=== PATIENT | female | born 1935 | race Caucasian/White ===

== ENCOUNTER 2021-11-25 20:35 | Observation (INO) ==
[2021-11-25] MEDS ORDERED: CEFEPIME 2,000 MG/20 ML VIAL IV STA (21:43)
[2021-11-25] MEDS ORDERED: SODIUM CHLORIDE 0.9% 1000ML 1,000 ML IV SCH (21:45)
[2021-11-25] MEDS ORDERED: ACETAMINOPHEN 1000 MG/100 ML IV IV STA (21:54)
[2021-11-25 21:56] LABS: Basophils # (auto) 0.03 K/uL (0-0.2); Basophils % (auto) 0.5 %; Hematocrit (blood only) 44.9 % (37-47); Immature Granulocytes # (auto) 0.01 K/uL (0.00-0.02); Immature Granulocytes % (auto) 0.2 %; Lymphocytes # (auto) 0.54 K/uL (1.2-3.4); Lymphocytes % (auto) 8.6 %; Mean Corpuscular Hemoglobin 30.1 pg (25-34); Mean Corpuscular Hgb Conc 33.4 g/dL (32-36); Mean Platelet Volume 10.9 fL (7.4-10.4); Monocytes # (auto) 0.19 K/uL (0.11-0.59); Neutrophils # (auto) 5.53 K/uL (1.4-6.5); Neutrophils % (auto) 87.7 %; Platelet Count 145 K/uL (130-400); RDW Coefficient of Variation 14.6 % (11.5-14.5); RDW Standard Deviation 48.7 fL (36.4-46.3); Red Blood Count 4.99 M/uL (4.2-5.4)
--- NOTE | 2021-11-25 22:00 | Emergency Department Note ---
Impression & Plan Acute confusion, Pneumonia, Weakness ED Provider Note NAME: RYLIE KELLY AGE: 86 SEX: F : 1935 ARRIVES VIA: Ambulance INFORMANT: [Patient][family] ED PROVIDER(S): [Enzo aRusch MD] CHIEF COMPLAINT: Weakness HISTORY OF PRESENT ILLNESS: The patient is an 86-year-old female who presents to the ER with 2 days of headache, some intermittent vomiting, fatigue, chills. Today, she was in bed all day and seemed quite a bit weaker than baseline. At times, there was confusion. The patient is a resident at [facility]. She was recently treated for pneumonia, she finished her antibiotics about 3 days ago. Of note, the nursing noticed a temperature elevation prior to arrival. The patient currently complains of some chills. She has no shortness of breath or abdominal pain. No headache. No chest pain. REVIEW OF SYSTEMS: See HPI for pertinent positives and negatives. A total of ten systems were reviewed and were otherwise negative. PMHx/PSHx: See Below SOCIAL HISTORY: See Below. PHYSICAL EXAM: GENERAL: Patient is in no acute distress. HEENT: No acute trauma, normocephalic atraumatic, mucous membranes dry, no nasal congestion, no scleral icterus. NECK: No stridor, no adenopathy, no meningismus, trachea is midline. LUNGS: Clear to auscultation bilaterally, no wheeze, no rhonchi, breath sounds equal. HEART: Without murmurs gallops or rubs, regular rate and rhythm. ABDOMEN: Soft, nontender, bowel sounds positive, no hernias, no peritonitis. EXTREMITIES: No cyanosis or edema, full range of motion of all the joints without pain or difficulty, no signs for acute trauma. NEUROLOGIC: Awake alert, follows commands, no acute motor or sensory deficits, no focal weakness. SKIN: No rash, no jaundice, no diaphoresis. DIFFERENTIAL DIAGNOSIS: Sepsis, UTI, pneumonia, COVID-19, influenza, metabolic abnormality, electrolyte abnormalities, cardiac sources, cellulitis, bacteremia, intracerebral event, toxicologic etiology, neurologic event, as well as other pathologies. EMERGENCY DEPARTMENT COURSE/PROCEDURES: ECG: Indication was weakness. The ECG shows a sinus rhythm with a PAC. The rate is 92. There is some ST depression in the lateral leads. There is a potential old inferior infarct. No ST elevation. The QTc is 420. Continuous Cardiac Monitoring: An order was placed for continuous cardiac monitoring. The monitor shows a rate of 92 with normal sinus rhythm. MEDICAL DECISION MAKING: There is no leukocytosis or worrisome anemia. There is a normal platelet count. INR is a bit elevated at 1.2, likely from her Xarelto use. There is no significant electrolyte abnormality or kidney failure. Lactic acid level is not elevated making severe sepsis less likely. There is no worrisome liver enzyme elevation. ECG shows a sinus rhythm, no obvious ischemia. Cardiac enzyme testing x1 is not consistent with acute cardiac injury. Procalcitonin level is not elevated. Urinalysis shows some contamination, no obvious infection. Flu and Covid testing returned negative. Chest x-ray showed a potential left base pneumonia versus atelectasis. Brain CT showed no acute bleed or mass-effect. The patient presents with some confusion, a fever documented earlier. She was recently treated for pneumonia as an outpatient. The patient was given IV saline, 1 L. She was given IV cefepime as empiric antibiotic coverage. She received IV Tylenol. The patient has been resting her entire stay. Her O2 saturation is a bit low but still acceptable, I do not think she requires oxygen supplementation. I do think the patient deserves a hospital stay. She is weak, she was confused, she was febrile. She may have a residual pneumonia based on her chest x-ray findings and recent history. I did speak with the patient and her daughter, I spoke with the director case. The on-call hospitalist was consulted. Past Med/Surg History Medical History Atrial fibrillation Dementia Parkinsons disease Sjogren syndrome, unspecified Surgical History (Updated 11/26/21 @ 03:46 by Michaela Saldana DO) History of hysterectomy History of surgical procedure on eye proper using laser Family History (Updated 11/26/21 @ 03:46 by Michaela Saldana DO) Other Family history non-contributory Social History Smoking Status: Never smoker Hx Alcohol Use: No Hx Substance Use: No Preferred Language: Bulgarian Communication Ability: Effective Credit Associate Required: No Beliefs That Will Affect Care: None marital status: Single Current Living Situation: Alone and Personal Care Facility Current Living Situation Comment: Independent living How many Children do You have: 1 Other Information That Helps Us Care for You: No Feels Safe at Home: Yes Safety Concerns: Feels Safe At This Time Assistive Devices: Cane Allergies Allergies Allergy/AdvReac Type Severity Reaction Status Date / Time No Known Allergies Allergy Verified 11/25/21 21:17 Home Meds Home Medications Medication Instructions Recorded Confirmed carbidopa 25 mg-levodopa 100 mg 1 tab PO DAILY 06/20/21 11/25/21 tablet rivaroxaban 20 mg tablet (Xarelto) 20 mg PO DAILY 06/20/21 11/25/21 rivastigmine 9.5 mg TRANSDERMAL DAILY 06/20/21 11/25/21 ondansetron 4 mg disintegrating 4 mg PO TID PRN 11/25/21 11/25/21 tablet pantoprazole 40 mg tablet,delayed 40 mg PO DAILY 11/25/21 11/25/21 release polyethylene glycol 3350 17 17 g PO DAILY PRN 11/25/21 11/25/21 gram/dose oral powder (Miralax) Results & Data (ED) Vital Signs Vital Signs - 24 hr 11/25/21 20:47 11/25/21 20:48 11/25/21 22:20 Temperature 37.6 C H Temperature Source Oral Pulse Rate 92 H Pulse Rate [Right Finger] Pulse Rhythm Regular Pulse Rhythm [Right Finger] Pulse Strength Normal Pulse Strength [Right Finger] Respiratory Rate 14 Respiratory Effort / Characteristics Non-Labored Respiratory Depth Normal Respiratory Pattern Regular Blood Pressure 139/72 Blood Pressure [Left Arm] Blood Pressure Mean 94 Blood Pressure Mean [Left Arm] Blood Pressure Position Lying Blood Pressure Position [Left Arm] Pulse Oximetry 93 Oxygen Delivery Method Room Air Room Air Room Air Sepsis Recent Fever Within 48 Hours Yes Sepsis New/Unexplained Change in Mental Status Yes Sepsis Action Taken by Nursing No Action Required 11/25/21 22:21 11/26/21 00:23 11/26/21 02:08 Temperature 36.8 C Temperature Source Oral Pulse Rate Pulse Rate [Right Finger] 84 109 H 96 H Pulse Rhythm Pulse Rhythm [Right Finger] Regular Pulse Strength Pulse Strength [Right Finger] Normal Respiratory Rate 20 Respiratory Effort / Characteristics Non-Labored Respiratory Depth Normal Respiratory Pattern Regular Blood Pressure Blood Pressure [Left Arm] 142/84 H 81/54 L Blood Pressure Mean Blood Pressure Mean [Left Arm] 103 63 Blood Pressure Position Blood Pressure Position [Left Arm] Lying Lying Pulse Oximetry 96 91 94 Oxygen Delivery Method Room Air Room Air Room Air Sepsis Recent Fever Within 48 Hours Sepsis New/Unexplained Change in Mental Status Sepsis Action Taken by [facility] Medications Current Medication List: was personally reviewed by me Laboratory Data Attestation: I reviewed the patient's lab results. Result diagrams: 11/25/21 21:08 11/25/21 21:08 Lab Results 11/25/21 11/25/21 11/25/21 Range/Units 21:08 21:08 21:08 WBC 6.30 (4.8-10.8) K/uL RBC 4.99 (4.2-5.4) M/uL Hgb 15.0 (12.0-16.0) g/dL Hct 44.9 (37-47) % MCV 90.0 (80-100) fL MCH 30.1 (25-34) pg MCHC 33.4 (32-36) g/dL RDW Std Deviation 48.7 H (36.4-46.3) fL RDW Coeff of [place] 14.6 H (11.5-14.5) % Plt Count 145 (130-400) K/uL MPV 10.9 H (7.4-10.4) fL Immature Gran % (Auto) 0.2 % Neut % (Auto) 87.7 % Lymph % (Auto) 8.6 % [place] % (Auto) 3.0 % Eos % (Auto) 0.0 % Baso % (Auto) 0.5 % Neut # (Auto) 5.53 (1.4-6.5) K/uL Lymph # (Auto) 0.54 L (1.2-3.4) K/uL [place] # (Auto) 0.19 (0.11-0.59) K/uL Eos # (Auto) 0.00 (0-0.5) K/uL Baso # (Auto) 0.03 (0-0.2) K/uL Immature Gran # (Auto) 0.01 (0.00-0.02) K/uL PT 12.1 H (9.0-12.0) Seconds INR 1.2 H (0.9-1.1) APTT 36.6 H (21.0-31.0) Seconds PTT Ratio 1.4 Sodium 134 L (136-145) mmol/L Potassium 3.8 (3.5-5.1) mmol/L Chloride 101 (98-107) mmol/L Carbon Dioxide 24 (21-32) mmol/L Anion Gap 9 (3-11) BUN 15 (6-23) mg/dl Creatinine 0.96 (0.6-1.2) mg/dl Est Cr Clr Drug Dosing 41.6 ml/min Est GFR ( Amer) 61.6 ml/min Est GFR (Non-Af Amer) 53.2 ml/min BUN/Creatinine Ratio 15.6 (10-20) Glucose 128 H (70-99(Fasting)) mg/dl Lactate (0.4-2.0) mmol/L Calcium 9.1 (8.5-10.1) mg/dl Magnesium 1.9 (1.7-2.4) mg/dl Total Bilirubin 0.6 (0.2-1.0) mg/dl AST 32 (13-39) U/L ALT 6 L (7-52) U/L Alkaline Phosphatase 57 (34-104) U/L Troponin I < 0.03 (0-0.04) ng/ml Total Protein 6.8 (6.0-8.3) gm/dl Albumin 3.9 (3.4-5.0) gm/dl Globulin 2.9 (2.5-4.0) gm/dl Albumin/Globulin Ratio 1.3 (0.9-2) Procalcitonin (0-0.5) ng/ml Urine Color Urine Appearance (Clear) Urine pH (4.5-7.5) Ur Specific [place] (1.000-1.030) Urine Protein (Negative) Urine Glucose (UA) (Negative) Urine Ketones (Negative) Urine Blood (Negative) Urine Nitrite (Negative) Urine Bilirubin (Negative) Urine Urobilinogen (Negative) Ur Leukocyte Esterase (Negative) Urine WBC (Auto) (0-5) /hpf Urine RBC (Auto) (0-4) /hpf U Hyaline Cast (Auto) (0-5) /lpf U Epithel Cells (Auto) (0-5) /lpf Urine Bacteria (Auto) (Negative) Urine Mucus (None Prsent) Influ A Molecular Assay (Negative) Influ B Molecular Assay (Negative) SARS-CoV-2, RNA, NAAT (NEGATIVE) 11/25/21 11/25/21 11/25/21 Range/Units 21:08 22:25 Unknown WBC (4.8-10.8) K/uL RBC (4.2-5.4) M/uL Hgb (12.0-16.0) g/dL Hct (37-47) % MCV (80-100) fL MCH (25-34) pg MCHC (32-36) g/dL RDW Std Deviation (36.4-46.3) fL RDW Coeff of [place] (11.5-14.5) % Plt Count (130-400) K/uL MPV (7.4-10.4) fL Immature Gran % (Auto) % Neut % (Auto) % Lymph % (Auto) % [place] % (Auto) % Eos % (Auto) % Baso % (Auto) % Neut # (Auto) (1.4-6.5) K/uL Lymph # (Auto) (1.2-3.4) K/uL [place] # (Auto) (0.11-0.59) K/uL Eos # (Auto) (0-0.5) K/uL Baso # (Auto) (0-0.2) K/uL Immature Gran # (Auto) (0.00-0.02) K/uL PT (9.0-12.0) Seconds INR (0.9-1.1) APTT (21.0-31.0) Seconds PTT Ratio Sodium (136-145) mmol/L Potassium (3.5-5.1) mmol/L Chloride (98-107) mmol/L Carbon Dioxide (21-32) mmol/L Anion Gap (3-11) BUN (6-23) mg/dl Creatinine (0.6-1.2) mg/dl Est Cr Clr Drug Dosing ml/min Est GFR ( Amer) ml/min Est GFR (Non-Af Amer) ml/min BUN/Creatinine Ratio (10-20) Glucose (70-99(Fasting)) mg/dl Lactate 1.3 (0.4-2.0) mmol/L Calcium (8.5-10.1) mg/dl Magnesium (1.7-2.4) mg/dl Total Bilirubin (0.2-1.0) mg/dl AST (13-39) U/L ALT (7-52) U/L Alkaline Phosphatase (34-104) U/L Troponin I (0-0.04) ng/ml Total Protein (6.0-8.3) gm/dl Albumin (3.4-5.0) gm/dl Globulin (2.5-4.0) gm/dl Albumin/Globulin Ratio (0.9-2) Procalcitonin 0.38 (0-0.5) ng/ml Urine Color Dark Yellow Urine Appearance Clear (Clear) Urine pH 6.0 (4.5-7.5) Ur Specific [place] 1.032 H (1.000-1.030) Urine Protein 1+ H (Negative) Urine Glucose (UA) Negative (Negative) Urine Ketones 1+ H (Negative) Urine Blood Trace H (Negative) Urine Nitrite Negative (Negative) Urine Bilirubin Negative (Negative) Urine Urobilinogen Negative (Negative) Ur Leukocyte Esterase Negative (Negative) Urine WBC (Auto) 1-5 (0-5) /hpf Urine RBC (Auto) 0-4 (0-4) /hpf U Hyaline Cast (Auto) 0 (0-5) /lpf U Epithel Cells (Auto) >30 H (0-5) /lpf Urine Bacteria (Auto) Negative (Negative) Urine Mucus Present A (None Prsent) Influ A Molecular Assay (Negative) Influ B Molecular Assay (Negative) SARS-CoV-2, RNA, NAAT (NEGATIVE) 11/25/21 11/25/21 Range/Units Unknown Unknown WBC (4.8-10.8) K/uL RBC (4.2-5.4) M/uL Hgb (12.0-16.0) g/dL Hct (37-47) % MCV (80-100) fL MCH (25-34) pg MCHC (32-36) g/dL RDW Std Deviation (36.4-46.3) fL RDW Coeff of [place] (11.5-14.5) % Plt Count (130-400) K/uL MPV (7.4-10.4) fL Immature Gran % (Auto) % Neut % (Auto) % Lymph % (Auto) % [place] % (Auto) % Eos % (Auto) % Baso % (Auto) % Neut # (Auto) (1.4-6.5) K/uL Lymph # (Auto) (1.2-3.4) K/uL [place] # (Auto) (0.11-0.59) K/uL Eos # (Auto) (0-0.5) K/uL Baso # (Auto) (0-0.2) K/uL Immature Gran # (Auto) (0.00-0.02) K/uL PT (9.0-12.0) Seconds INR (0.9-1.1) APTT (21.0-31.0) Seconds PTT Ratio Sodium (136-145) mmol/L Potassium (3.5-5.1) mmol/L Chloride (98-107) mmol/L Carbon Dioxide (21-32) mmol/L Anion Gap (3-11) BUN (6-23) mg/dl Creatinine (0.6-1.2) mg/dl Est Cr Clr Drug Dosing ml/min Est GFR ( Amer) ml/min Est GFR (Non-Af Amer) ml/min BUN/Creatinine Ratio (10-20) Glucose (70-99(Fasting)) mg/dl Lactate (0.4-2.0) mmol/L Calcium (8.5-10.1) mg/dl Magnesium (1.7-2.4) mg/dl Total Bilirubin (0.2-1.0) mg/dl AST (13-39) U/L ALT (7-52) U/L Alkaline Phosphatase (34-104) U/L Troponin I (0-0.04) ng/ml Total Protein (6.0-8.3) gm/dl Albumin (3.4-5.0) gm/dl Globulin (2.5-4.0) gm/dl Albumin/Globulin Ratio (0.9-2) Procalcitonin (0-0.5) ng/ml Urine Color Urine Appearance (Clear) Urine pH (4.5-7.5) Ur Specific [place] (1.000-1.030) Urine Protein (Negative) Urine Glucose (UA) (Negative) Urine Ketones (Negative) Urine Blood (Negative) Urine Nitrite (Negative) Urine Bilirubin (Negative) Urine Urobilinogen (Negative) Ur Leukocyte Esterase (Negative) Urine WBC (Auto) (0-5) /hpf Urine RBC (Auto) (0-4) /hpf U Hyaline Cast (Auto) (0-5) /lpf U Epithel Cells (Auto) (0-5) /lpf Urine Bacteria (Auto) (Negative) Urine Mucus (None Prsent) Influ A Molecular Assay Negative (Negative) Influ B Molecular Assay Negative (Negative) SARS-CoV-2, RNA, NAAT NEGATIVE (NEGATIVE) Administered Medications Acetaminophen (Acetaminophen 325 Mg Tab) 650 mg PO Q4H PRN PRN Reason: pain/fever Stop: 12/26/21 04:50 Last Admin: 11/26/21 13:10 Dose: 650 mg Documented by: [id number] Admin: 11/26/21 07:37 Dose: 650 mg Documented by: [id number] Carbidopa/Levodopa (Carbidopa/Levodopa 25/100mg Tab) 1 tab PO DAILY [facility] Stop: 12/26/21 08:59 Last Admin: 11/26/21 08:50 Dose: 1 tab Documented by: [id number] Ceftriaxone Sodium 1,000 mg/ (Dextrose) 50 mls @ 100 mls/hr IV Q24H SU; Protocol Stop: 12/03/21 08:59 Last Infusion: 11/26/21 09:46 Dose: 0 mls/hr Documented by: [id number] Admin: 11/26/21 08:50 Dose: 100 mls/hr Documented by: [id number] Lactated Ringer's (Lr) 1,000 mls @ 100 mls/hr IV .Q10H SU Stop: 11/27/21 00:50 Last Infusion: 11/26/21 15:19 Dose: 0 mls/hr Documented by: [id number] Admin: 11/26/21 05:12 Dose: 100 mls/hr Documented by: [id number] Miscellaneous (Exelon~Order Awaiting Action) 1 ea N/A QS [facility] Stop: 12/26/21 07:59 Last Admin: 11/26/21 09:08 Dose: Not Given Documented by: [id number] Pantoprazole Sodium (Pantoprazole 40 Mg Tab) 40 mg PO DAILY SU Stop: 12/26/21 08:59 Last Admin: 11/26/21 08:50 Dose: 40 mg Documented by: [id number] Rivaroxaban (Rivaroxaban 20 Mg Tab) 20 mg PO DAILY SU Stop: 12/26/21 08:59 Last Admin: 11/26/21 08:50 Dose: 20 mg Documented by: [id number] Discontinued Medications Acetaminophen (Acetaminophen 1000 Mg/100 Ml Iv) 1,000 mg IV NOW STA Stop: 11/25/21 21:55 Last Admin: 11/25/21 22:10 Dose: 1,000 mg Documented by: [id number] Sodium Chloride (Nss 1000ml) 1,000 mls @ 999 mls/hr IV .Q1H1M SU Stop: 11/25/21 22:45 Last Infusion: 11/26/21 00:25 Dose: 0 mls/hr Documented by: [id number] Admin: 11/25/21 22:10 Dose: 999 mls/hr Documented by: [id number] Cefepime HCl (Maxipime) 2,000 mg in 20 mls @ 5 mls/min IV NOW STA; Protocol Stop: 11/25/21 21:46 Last Admin: 11/25/21 22:10 Dose: 5 mls/min Documented by: [id number] Azithromycin 500 mg/ Dextrose 255 mls @ 127.5 mls/hr IV NOW STA Stop: 11/26/21 04:09 Last Infusion: 11/26/21 04:51 Dose: 0 mls/hr Documented by: [id number] Admin: 11/26/21 02:36 Dose: 127.5 mls/hr Documented by: [id number] Imaging Data Attestation: I personally reviewed and interpreted this imaging study as follows: My Impression: Chest x-ray: There is a potential left base infiltrate versus some atelectasis, no CHF. Radiologist's Impression: Chest X-Ray 11/25/21 21:43 XR chest 1V portable CLINICAL HISTORY: SEPSIS. Evaluate cardiopulmonary status COMPARISON STUDY: 10/28/2021 TECHNIQUE: 1 view of the chest FINDINGS: Single frontal view of the chest demonstrates the cardiomediastinal silhouette to be within normal limits. There is a decreased inspiratory effort with elevation of the hemidiaphragms and crowding of the bronchovascular markings at the lung bases and centrally. There is minimal left basilar atelectasis. The lungs are otherwise clear of alveolar opacities. There is no evidence for pleural effusion. There is no evidence for vascular congestion. There is no acute osseous pathology. IMPRESSION: Compared to the previous study, there is a decreased inspiratory effort with left basilar atelectasis. Otherwise no acute chest disease. ACT 112: Negative or not required by law. Electronically signed by: Nathan Acevedo M.D. 11/26/2021 7:[address] 11/25/21 22:[address] DOSE: 614.27 mGy.cm HISTORY: confusion TECHNIQUE: Multiaxial CT images of the head were performed without the use of intravenous contrast. Automated exposure control was utilized for this study. A dose lowering technique was utilized adhering to the principles of ALARA. Comparison: Head CT 06/20/2021. Findings: The paranasal sinuses and mastoid air cells are clear. The calvarium and skull base are intact. There is no mass, hematoma, midline shift, acute infarct. White matter hypodensity is nonspecific but suggestive of microvascular ischemic change. The ventricles and sulci demonstrate mild age-related involutional changes. Impression: No acute intracranial abnormality. Atrophy and microvascular ischemic changes. ACT 112: Negative or not required by law. Electronically signed by: Osman Galeana M.D. 11/26/2021 7:[address]: There is no evidence for intracranial abnormality or skull fracture. There is some volume loss and small vessel disease. 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 Discharge Plan Visit Data Chief Complaint: Weakness Stated Complaint: Weakness ED Provider: Enzo Rausch Discharge Problem: Acute confusion, Pneumonia, Weakness Patient Disposition: Admitted As Inpatient Condition: Fair Discharge Instructions Interventions: ED Discharge Assessment Last Done: 11/26/21 04:52
[2021-11-25 22:07] LABS: INR 1.2 (0.9-1.1); Partial Thromboplastin Ratio 1.4; Partial Thromboplastin Time 36.6 Seconds (21.0-31.0); Prothrombin Time 12.1 Seconds (9.0-12.0)
[2021-11-25 22:16] LABS: Troponin I < 0.03 ng/ml (0-0.04)
[2021-11-25 22:39] LABS: Influenza A virus by PCR Negative (Negative); Influenza B virus by PCR Negative (Negative)
[2021-11-25 23:11] LABS: Alanine Aminotransferase 6 U/L (7-52); Albumin Globulin Ratio 1.3 (0.9-2); Albumin Level 3.9 gm/dl (3.4-5.0); Alkaline Phosphatase 57 U/L (34-104); Anion Gap 9 (3-11); Aspartate Aminotransferase 32 U/L (13-39); BUN Creatinine Ratio 15.6 (10-20); Bilirubin,Total 0.6 mg/dl (0.2-1.0); Blood Urea Nitrogen 15 mg/dl (6-23); Calcium 9.1 mg/dl (8.5-10.1); Carbon Dioxide 24 mmol/L (21-32); Chloride 101 mmol/L (98-107); Creatinine Clr Calc Pharmacy 41.6 ml/min; Est GFR (African American) 61.6 ml/min; Est GFR (Non-African American) 53.2 ml/min; Globulin 2.9 gm/dl (2.5-4.0); Glucose 128 mg/dl (70-99(Fasting)); Magnesium 1.9 mg/dl (1.7-2.4); Potassium 3.8 mmol/L (3.5-5.1); Sodium 134 mmol/L (136-145); Total Protein 6.8 gm/dl (6.0-8.3)
[2021-11-25 23:35] LABS: Appearance Urine Clear (Clear); Bacteria Urine Automated Negative (Negative); Bilirubin Urine Negative (Negative); Blood Urine Trace (Negative); Color Urine Dark Yellow; Epithelial Cell Urine Auto >30 /lpf (0-5); Glucose Urine UA Negative (Negative); Ketones Urine 1+ (Negative); Leukocyte Esterase Urine Negative (Negative); Nitrite Urine Negative (Negative); Protein Urine 1+ (Negative); Specific Gravity Urine 1.032 (1.000-1.030); Urobilinogen Urine Negative (Negative)
[2021-11-26 00:42] LABS: Cast Urine Automated 0 /lpf (0-5); Mucus Urine Present (None Prsent); RBC Urine Automated 0-4 /hpf (0-4)
[2021-11-26] MEDS ORDERED: AZITHROMYCIN 500 MG in DEXTROSE 5% 250 ML IV STA (02:10)
--- NOTE | 2021-11-26 02:11 | History & Physical Report ---
Date of Service November 26, 2021 Assessment & Plan (1) Pneumonia: Plan: Suspect LLL PNA. Patient febrile on arrival, mildly elevated HR at 92 saturating 93% on room air -Admit to medical -Repeat CXR in AM after receiving IVF -Repeat Procalcitonin -Ceftriaxone 1gm IV daily -Azithromycin -Follow cultures -PT/OT evaluation for weakness and gait instability although suspect is secondary to acute illness (2) Atrial fibrillation: Plan: Rate controlled -Continue Xarelto (3) Parkinsons disease: Plan: Chronic. Stable on medications -Continue Rivastigmine -Continue Carbidopa/Levodopa Plan: F/e/n - LR at 100mL/hr x 2 liters, monitor electrolytes, regular diet as tolerated with aspiration precautions. Bowel regimen Ppx - On Xarelto Code - Full Dispo - Admit to medical History of Present Illness Chief Complaint: illness Primary Care Provider: [facility] Maribel Smart is a pleasant 86yo female with history of AF, Parkinson's, Dementia, Sjogren's presenting with several weeks of not feeling well. She has been complaining of worsening fatigue as well as nausea and vomiting. She has been following with her PCP with these complaints. She had a CT of the abdomen performed on 11/14/21 which revealed moderate fecal retention as well as left basilar groundglass densities suggestive of atelectasis vs pneumonitis. She was started on antibiotics which she completed 3 days ago. She had a RUQ US performed on 11/19/21 which revealed small polyps, no gallstones and a 7mm hepatic lobe cyst. Patient presents with her daughter today with worsening symptoms. Her daughter visited her yesterday and patient was tired and less interactive. She also had nausea and vomiting. Today the patient was more tired. She was in bed and had not gotten out all day. Daughter found her to be less awake and responsive. She was mildly confused and speaking some nonsensical words. Daughter states that patient had difficulty with ambulating. This prompted her to bring her to the ER. Patient is sleeping during most of encounter but is arousable. She follows commands and answers questions appropriately. She is oriented to self and location, not to date. Daughter states that is not unusual for her. ER Course: Tylenol, Zofran, NSS x 1L, Cefepime 2gm, Azithromycin 500mg Allergies Allergy/AdvReac Type Severity Reaction Status Date / Time No Known Allergies Allergy Verified 11/25/21 21:17 Home Medications Medication Instructions Recorded Confirmed Type carbidopa 25 mg-levodopa 100 mg 1 tab PO DAILY 06/20/21 11/25/21 History tablet rivaroxaban 20 mg tablet (Xarelto) 20 mg PO DAILY 06/20/21 11/25/21 History rivastigmine 9.5 mg TRANSDERMAL DAILY 06/20/21 11/25/21 History ondansetron 4 mg disintegrating 4 mg PO TID PRN 11/25/21 11/25/21 History tablet pantoprazole 40 mg tablet,delayed 40 mg PO DAILY 11/25/21 11/25/21 History release polyethylene glycol 3350 17 17 g PO DAILY PRN 11/25/21 11/25/21 History gram/dose oral powder (Miralax) Past Med/Surg History Medical History (Updated 11/26/21 @ 03:50 by Michaela Saldana DO) Atrial fibrillation Dementia Parkinsons disease Sjogren syndrome, unspecified Surgical History (Updated 11/26/21 @ 03:46 by Michaela Saldana DO) History of hysterectomy History of surgical procedure on eye proper using laser Family History (Updated 11/26/21 @ 03:46 by Michaela Saldana DO) Other Family history non-contributory Social History (Updated 11/26/21 @ 03:47 by Michaela Saldana DO) Smoking Status: Never smoker Hx Alcohol Use: No Hx Substance Use: No Feels Safe at Home: Yes Physical Exam Physical Exam: General: patient resting comfortably, NAD, non-toxic in appearance, AA&O x 2 Skin: warm, dry, intact, no rashes or lesions HEENT: NC/AT, PERRL, EOMI, anicteric sclera, conjunctiva without injection, external ear normal to inspection and nontender, nares patent, dry mucus membranes, dentition intact, no oropharyngeal lesions, neck supple, trachea midline, no LAD, no thyromegaly, no JVD Heart: +S1/S2, regular, no m/r/g Lungs: equal air entry bilaterally, faint end-inspiratory crackles in LLL, no wheezing Abd: +BS, soft, NT/ND, no masses/organomegaly/ascites Ext: warm, 2+ pulses in UE/LE bilaterally, no clubbing/cyanosis or edema Neuro: nonfocal, patient AA&O x 2, speech intact, no facial droop, moving all extremities on command with equal strength 5/5 Results & Data Results & Data ([facility]) Vital Signs (Past 12 Hours) Vital Signs Temp Pulse Pulse Resp BP BP Pulse Ox 11/26/21 02:08 96 H 81/54 L 94 11/26/21 00:23 36.8 C 109 H 91 11/25/21 22:21 84 20 142/84 H 96 11/25/21 20:48 37.6 C H 92 H 14 139/72 93 Laboratory Results Laboratory Results WBC 6.30 K/uL (4.8-10.8) 11/25/21 21:08 RBC 4.99 M/uL (4.2-5.4) 11/25/21 21:08 Hgb 15.0 g/dL (12.0-16.0) 11/25/21 21:08 Hct 44.9 % (37-47) 11/25/21 21:08 MCV 90.0 fL (80-100) 11/25/21 21:08 MCH 30.1 pg (25-34) 11/25/21 21:08 MCHC 33.4 g/dL (32-36) 11/25/21 21:08 RDW Std Deviation 48.7 fL (36.4-46.3) H 11/25/21 21:08 RDW Coeff of [place] 14.6 % (11.5-14.5) H 11/25/21 21:08 Plt Count 145 K/uL (130-400) 11/25/21 21:08 MPV 10.9 fL (7.4-10.4) H 11/25/21 21:08 Immature Gran % (Auto) 0.2 % 11/25/21 21:08 Neut % (Auto) 87.7 % 11/25/21 21:08 Lymph % (Auto) 8.6 % 11/25/21 21:08 [place] % (Auto) 3.0 % 11/25/21 21:08 Eos % (Auto) 0.0 % 11/25/21 21:08 Baso % (Auto) 0.5 % 11/25/21 21:08 Neut # (Auto) 5.53 K/uL (1.4-6.5) 11/25/21 21:08 Lymph # (Auto) 0.54 K/uL (1.2-3.4) L 11/25/21 21:08 [place] # (Auto) 0.19 K/uL (0.11-0.59) 11/25/21 21:08 Eos # (Auto) 0.00 K/uL (0-0.5) 11/25/21 21:08 Baso # (Auto) 0.03 K/uL (0-0.2) 11/25/21 21:08 Immature Gran # (Auto) 0.01 K/uL (0.00-0.02) 11/25/21 21:08 PT 12.1 Seconds (9.0-12.0) H 11/25/21 21:08 INR 1.2 (0.9-1.1) H 11/25/21 21:08 APTT 36.6 Seconds (21.0-31.0) H 11/25/21 21:08 PTT Ratio 1.4 11/25/21 21:08 Sodium 134 mmol/L (136-145) L 11/25/21 21:08 Potassium 3.8 mmol/L (3.5-5.1) 11/25/21 21:08 Chloride 101 mmol/L (98-107) 11/25/21 21:08 Carbon Dioxide 24 mmol/L (21-32) 11/25/21 21:08 Anion Gap 9 (3-11) 11/25/21 21:08 BUN 15 mg/dl (6-23) 11/25/21 21:08 Creatinine 0.96 mg/dl (0.6-1.2) 11/25/21 21:08 Est Cr Clr Drug Dosing 41.6 ml/min 11/25/21 21:08 Est GFR ( Amer) 61.6 ml/min 11/25/21 21:08 Est GFR (Non-Af Amer) 53.2 ml/min 11/25/21 21:08 BUN/Creatinine Ratio 15.6 (10-20) 11/25/21 21:08 Glucose 128 mg/dl (70-99(Fasting)) H 11/25/21 21:08 Lactate 1.3 mmol/L (0.4-2.0) 11/25/21 22:25 Calcium 9.1 mg/dl (8.5-10.1) 11/25/21 21:08 Magnesium 1.9 mg/dl (1.7-2.4) 11/25/21 21:08 Total Bilirubin 0.6 mg/dl (0.2-1.0) 11/25/21 21:08 AST 32 U/L (13-39) 11/25/21 21:08 ALT 6 U/L (7-52) L 11/25/21 21:08 Alkaline Phosphatase 57 U/L (34-104) 11/25/21 21:08 Troponin I < 0.03 ng/ml (0-0.04) 11/25/21 21:08 Total Protein 6.8 gm/dl (6.0-8.3) 11/25/21 21:08 Albumin 3.9 gm/dl (3.4-5.0) 11/25/21 21:08 Globulin 2.9 gm/dl (2.5-4.0) 11/25/21 21:08 Albumin/Globulin Ratio 1.3 (0.9-2) 11/25/21 21:08 Procalcitonin 0.38 ng/ml (0-0.5) 11/25/21 21:08 Urine Color Dark Yellow 11/25/21 Unknown Urine Appearance Clear (Clear) 11/25/21 Unknown Urine pH 6.0 (4.5-7.5) 11/25/21 Unknown Ur Specific [place] 1.032 (1.000-1.030) H 11/25/21 Unknown Urine Protein 1+ (Negative) H 11/25/21 Unknown Urine Glucose (UA) Negative (Negative) 11/25/21 Unknown Urine Ketones 1+ (Negative) H 11/25/21 Unknown Urine Blood Trace (Negative) H 11/25/21 Unknown Urine Nitrite Negative (Negative) 11/25/21 Unknown Urine Bilirubin Negative (Negative) 11/25/21 Unknown Urine Urobilinogen Negative (Negative) 11/25/21 Unknown Ur Leukocyte Esterase Negative (Negative) 11/25/21 Unknown Urine WBC (Auto) 1-5 /hpf (0-5) 11/25/21 Unknown Urine RBC (Auto) 0-4 /hpf (0-4) 11/25/21 Unknown U Hyaline Cast (Auto) 0 /lpf (0-5) 11/25/21 Unknown U Epithel Cells (Auto) >30 /lpf (0-5) H 11/25/21 Unknown Urine Bacteria (Auto) Negative (Negative) 11/25/21 Unknown Urine Mucus Present (None Prsent) A 11/25/21 Unknown Influ A Molecular Assay Negative (Negative) 11/25/21 Unknown Influ B Molecular Assay Negative (Negative) 11/25/21 Unknown SARS-CoV-2, RNA, NAAT NEGATIVE (NEGATIVE) 11/25/[address] Head - Per STAT rad - comparison to prior study 06/20/21 - No evidence of acute intracranial abnormality or skull fracture. Volume loss and small vessel dise ase. Old right caudate lacune. Code Status & VTE Plan VTE Prophylaxis Plan VTE Prophylaxis will be ordered: Yes PG Care Time/CCT Total # of Minutes Spent Total Time Spent with Patient: Total time spent is greater than 50% in coordination of care (as documented) at patient's floor/unit and/or counseling patient: Coding Level of Care Code 57209 Initial Inpt Care Lvl 2 Diagnoses Atrial fibrillation I48.91 Parkinsons disease G20 Pneumonia J18.9
[2021-11-26] MEDS ORDERED: bisacodyL 10 MG SUPP PR PRN (04:51)
[2021-11-26] MEDS ORDERED: DOCUSATE SODIUM 100 MG CAP PO PRN (04:51)
[2021-11-26] MEDS ORDERED: POLYETHYLENE (MIRALAX) 17 GM PACK PO PRN (04:51)
[2021-11-26] MEDS ORDERED: ONDANSETRON INJ 2 MG/ML 2 ML VIAL IV PRN (04:51)
[2021-11-26] MEDS: LACTATED RINGER'S 1,000 ML IV SCH ×2 (05:12→17:37)
--- NOTE | 2021-11-26 07:16 | XRay Report ---
XR chest 1V portable CLINICAL HISTORY: SEPSIS. Evaluate cardiopulmonary status COMPARISON STUDY: 10/28/2021 TECHNIQUE: 1 view of the chest FINDINGS: Single frontal view of the chest demonstrates the cardiomediastinal silhouette to be within normal li mits. There is a decreased inspiratory effort with elevation of the hemidiaphragms and crowding of th e bronchovascular markings at the lung bases and centrally. There is minimal left basilar atelectasis . The lungs are otherwise clear of alveolar opacities. There is no evidence for pleural effusion. The re is no evidence for vascular congestion. There is no acute osseous pathology. IMPRESSION: Compared to the previous study, there is a decreased inspiratory effort with left basilar atelectasis. Otherwise no acute chest disease. ACT 112: Negative or not required by law. Electronically signed by: Nathan Acevedo M.D. 11/26/2021 7:15 AM
--- NOTE | 2021-11-26 07:21 | CT Scan Report ---
HEAD CT NONCONTRAST CT DOSE: 614.27 mGy.cm HISTORY: confusion TECHNIQUE: Multiaxial CT images of the head were performed without the use of intravenous contrast. A utomated exposure control was utilized for this study. A dose lowering technique was utilized adheri ng to the principles of ALARA. Comparison: Head CT 06/20/2021. Findings: The paranasal sinuses and mastoid air cells are clear. The calvarium and skull base are int act. There is no mass, hematoma, midline shift, acute infarct. White matter hypodensity is nonspecifi c but suggestive of microvascular ischemic change. The ventricles and sulci demonstrate mild age-rela onel involutional changes. Impression: No acute intracranial abnormality. Atrophy and microvascular ischemic changes. ACT 112: Negative or not required by law. Electronically signed by: Osman Galeana M.D. 11/26/2021 7:19 AM
[2021-11-26] MEDS: ACETAMINOPHEN 325 MG TAB PO PRN ×2 (07:37→13:10)
[2021-11-26] MEDS: PANTOprazole 40 MG TAB PO SCH (08:50)
[2021-11-26] MEDS: RIVAROXABAN 20 MG TAB PO SCH (08:50)
[2021-11-26] MEDS: CARBIDOPA/LEVODOPA 25/100MG TAB PO SCH (08:50)
[2021-11-26] MEDS ORDERED: cefTRIAXone SODIUM 1,000 MG in DEXTROSE 5% 50 ML IV SCH (09:00)
[2021-11-26] MEDS: EXELON~ORDER AWAITING ACTION SCH ×2 (09:08→17:48)
[2021-11-26 10:50] LABS: Adenovirus PCR Not Detected (NotDetected); Bordetella parapertussis PCR Not Detected (NotDetected); Bordetella pertussis PCR Not Detected (NotDetected); Chlamydia pneumoniae PCR Not Detected (NotDetected); Coronavirus 229E PCR Not Detected (NotDetected); Coronavirus CoV-2 (COVID19)PCR Not Detected (NotDetected); Coronavirus HKU1 PCR Not Detected (NotDetected); Coronavirus NL63 PCR Not Detected (NotDetected); Coronavirus OC43PCR Not Detected (NotDetected); Human Metapneumovirus PCR Not Detected (NotDetected); Influenza A PCR Not Detected (NotDetected); Influenza B PCR Not Detected (NotDetected); Mycoplasma pneumoniae PCR Not Detected (NotDetected); Parainfluenza Virus 1 PCR Not Detected (NotDetected); Parainfluenza Virus 2 PCR Not Detected (NotDetected); Parainfluenza Virus 3 PCR Not Detected (NotDetected); Parainfluenza Virus 4 PCR Not Detected (NotDetected); Respiratory Syncytial VirusPCR Not Detected (NotDetected); Rhinovirus/Enterovirus PCR Not Detected (NotDetected)
--- NOTE | 2021-11-26 12:11 | CT Scan Report ---
CT chest diagnostic wo con CT DOSE: 211.25 mGy.cm HISTORY: Abnormal chest x-ray. Sepsis. possible LLL pneumonia TECHNIQUE: Multiaxial CT images of the chest were performed without contrast. A dose lowering techni que was utilized adhering to the principles of ALARA. COMPARISON: Chest 11/25/2021. Abdomen and pelvis CT 11/14/2021. FINDINGS: Mild biapical pleural-parenchymal scarlike densities are noted. The central airways are pat ent. No pleural effusions. No pneumothorax. Groundglass densities at the lung bases likely represent mild dependent change. There is a 1 cm calcified granuloma within the left lower lobe. Otherwise, no focal lung consolidations to suggest pneumonia. A 1 cm hypodense lesion within the liver favors a cys t. The visualized spleen and adrenal glands are unremarkable. Normal thyroid gland. No mediastinal or hilar lymphadenopathy. There are calcified AP window and left hilar lymph nodes. Dense mitral annulu s calcifications. Mild calcified plaque within the left coronary artery. Trace pericardial effusion. The heart is normal in size. Normal esophagus. Normal caliber thoracic aorta. No acute fractures with in the visualized osseous structures. IMPRESSION: 1. Mild dependent changes seen at the lung bases. No focal lung consolidations to suggest pneumonia. 2. Trace pericardial fluid. 3. Evidence for prior granulomatous disease. ACT 112: Negative or not required by law. Electronically signed by: Osman Galeana M.D. 11/26/2021 12:10 PM
--- NOTE | 2021-11-26 15:34 | Hospitalist Progress Note ---
Date of Service November 26, 2021 Assessment & Plan (1) Atelectasis: Plan: -CXR on 11/25 LLL atelectasis, CT w/o contrast chest on 11/26 demonstrating evidence of atelectasis, no pneumonia -BioFire obtained this morning and was negative -UA is not convincing for acute UTI and subsequently culture has not been ordered -Blood cultures ordered and are pending -Incentive spirometry has been ordered q2h -She recently completed a course of abx as outpatient for suspected PNA, no gross evidence of infection just has very low grade fevers -D/C Zithromax and Rocephin (2) Atrial fibrillation: Plan: Rate controlled -Continue Xarelto (3) Parkinsons disease: Plan: Chronic. Stable on medications -Continue Rivastigmine -Continue Carbidopa/Levodopa Plan: PT/OT ordered due to gait instability, recommending SNF w/ rehab emphasis upon d/c. Will d/w pt's daughter. Stop abx. D/C tele she can go to regular med/surg bed. D/C planning, will consult case management to assist in this process. Daughter updated at bedside. Admission and Anticipated Discharge Date Admission Date: November 26, 2021 Subjective Pt seen on rounds this morning. She is an ER bed hold waiting for a telemetry bed. Review of Systems Review of Systems: CONSTITUTIONAL: +fatigue/malaise, weakness. 5 lb unintentional weight loss over the past couple weeks. Denies weight loss/gain, fever and chills. HEENT: Denies changes in vision and hearing. RESPIRATORY: Denies SOB, cough, wheezing. CV: Denies palpitations, CP, lower extremity edema, orthopnea, PND. GI: +intermittent n/v. Denies abdominal pain, and diarrhea. : Denies dysuria and urinary frequency, urgency, hesitancy. MUSCULOSKELETAL: Denies myalgia and joint pain. SKIN: Denies rash and pruritus. NEUROLOGICAL: Denies headache, syncope, focal weakness, numbness, tingling. PSYCHIATRIC: Denies recent changes in mood. Denies anxiety and depression. Physical Exam Physical Exam: GENERAL: 86 yo well-developed, well-nourished WF. NAD. LUNGS: Clear to auscultation bilaterally. Diminished in the bases. No W/R/R. CARDIOVASCULAR: Regular rate and rhythm. No M/G/R. No JVD. ABDOMEN: Soft, non-tender and non-distended. BS normal x 4 quad. EXTREMITIES: No edema. Non-tender. Peripheral pulses +2/4. NEUROLOGIC: A&O x3. PSYCHIATRIC: Cooperative. Appropriate mood and affect. SKIN: Warm, dry, intact. No rashes or lesions. Results & Data Results & [facility] ([facility]) Vital Signs (Past 12 Hours) Vital Signs Temp Pulse Resp BP Pulse Ox 11/26/21 13:17 37.8 C H 11/26/21 11:00 37.0 C 73 16 119/81 96 11/26/21 08:58 37.2 C 11/26/21 07:32 38.2 C H 11/26/21 07:00 80 16 113/50 L 94 11/26/21 06:24 82 22 92 11/26/21 06:08 85 22 92 11/26/21 04:01 97 H 95 Laboratory Results 11/25/21 21:08 11/25/21 21:08 PG Care Time/CCT Total # of Minutes Spent Total Time Spent with Patient: Total time spent is greater than 50% in coordination of care (as documented) at patient's floor/unit and/or counseling patient: Coding Level of Care Code 34596 Subseq Hosp Care Lvl 2 Diagnoses Atrial fibrillation I48.91 Parkinsons disease G20 Atelectasis J98.11
[2021-11-26] MEDS ORDERED: THIAMINE HCL 200 MG in SODIUM CHLORIDE 0.9% 50 ML IV ONE (20:30)
--- NOTE | 2021-11-26 22:50 | Electrocardiogram Report ---
Test Reason : Blood Pressure : / mmHG Vent. Rate : 092 BPM Atrial Rate : 092 BPM P-R Int : 152 ms QRS Dur : 084 ms QT Int : 340 ms P-R-T Axes : 087 -37 088 degrees QTc Int : 420 ms Sinus rhythm with marked sinus arrhythmia Premature atrial complexes Left axis deviation Nonspecific ST and T wave abnormality Abnormal ECG No previous ECGs available Confirmed by Alfonso Lopez ([id number]) on 11/26/2021 10:50:24 PM Referred By: REFERRED SELF Confirmed By:Alfonos Lopez
[2021-11-27] MEDS: EXELON~ORDER AWAITING ACTION SCH ×2 (00:20→09:07)
[2021-11-27] MEDS ORDERED: AZITHROMYCIN 250 MG in DEXTROSE 5% 250 ML IV SCH (06:00)
[2021-11-27 08:09] LABS: Basophils # (auto) 0.02 K/uL (0-0.2); Basophils % (auto) 0.7 %; Eosinophils # (auto) 0.01 K/uL (0-0.5); Eosinophils % (auto) 0.3 %; Hematocrit (blood only) 37.2 % (37-47); Hemoglobin 12.4 g/dL (12.0-16.0); Immature Granulocytes # (auto) 0.01 K/uL (0.00-0.02); Immature Granulocytes % (auto) 0.3 %; Lymphocytes # (auto) 0.63 K/uL (1.2-3.4); Lymphocytes % (auto) 21.5 %; Mean Corpuscular Hemoglobin 29.8 pg (25-34); Mean Corpuscular Hgb Conc 33.3 g/dL (32-36); Mean Corpuscular Volume 89.4 fL (80-100); Mean Platelet Volume 10.9 fL (7.4-10.4); Monocytes # (auto) 0.13 K/uL (0.11-0.59); Monocytes % (auto) 4.4 %; Neutrophils # (auto) 2.13 K/uL (1.4-6.5); Neutrophils % (auto) 72.8 %; Platelet Count 102 K/uL (130-400); RDW Coefficient of Variation 14.6 % (11.5-14.5); RDW Standard Deviation 47.8 fL (36.4-46.3); Red Blood Count 4.16 M/uL (4.2-5.4); White Blood Count 2.93 K/uL (4.8-10.8)
[2021-11-27 08:36] LABS: BUN Creatinine Ratio 17.1 (10-20); Calcium 8.1 mg/dl (8.5-10.1); Creatinine Clr Calc Pharmacy 52.6 ml/min; Est GFR (African American) 81.7 ml/min; Est GFR (Non-African American) 70.5 ml/min; Potassium 3.4 mmol/L (3.5-5.1)
[2021-11-27] MEDS ORDERED: POTASSIUM CHLORIDE CRTAB 20 MEQ TABCR PO STA (08:54)
[2021-11-27] MEDS: PANTOprazole 40 MG TAB PO SCH (09:06)
[2021-11-27] MEDS: CARBIDOPA/LEVODOPA 25/100MG TAB PO SCH (09:07)
--- NOTE | 2021-11-27 12:30 | Hospitalist Progress Note ---
Date of Service November 27, 2021 Assessment & Plan (1) Low grade fever: Plan: -No true fevers, everything has been less than 100.4F -No source of infection found to date -Urine culture requested by daughter and is pending, but pt is asymptomatic -Leukopenia noted on CBC today w/ associated lymphocytopenia, ALC of 692 -Procalcitonin this morning 0.58, yesterday was 0.38 -Discussed option including LP both with patient and her daughter, they want to defer at this time (2) Thrombocytopenia: Plan: -Currently on Xarelto and has been for years -Dropped from 145 yesterday to 102 today -No active bleeding, no BM since admission -Rectal exam performed, hemoccult card sent to lab for analysis, which came back negative -Drop in all cell lines -- was hydrated overnight but seems a significant drop in platelet count to just be related to hydration -Peripheral smear ordered, test for lyme and anaplasmosis -Viral? (3) Atelectasis: Plan: -CXR on 11/25 LLL atelectasis, CT w/o contrast chest on 11/26 demonstrating evidence of atelectasis, no pneumonia -BioFire obtained this morning and was negative -UA is not convincing for acute UTI and subsequently culture not ordered on admit but has been now ordered at daughter's request, results pending -Blood cultures ordered and are negative thus far for growth -Incentive spirometry has been ordered q2h -She recently completed a course of abx as outpatient for suspected PNA, no gross evidence of infection just has very low grade fevers -D/C Zithromax and Rocephin (4) Atrial fibrillation: Plan: Rate controlled -Continue Xarelto (5) Parkinsons disease: Plan: Chronic. Stable on medications -Continue Rivastigmine -Continue Carbidopa/Levodopa (6) Hypokalemia: Plan: -Replacement ordered with 40meq KCl Plan: PT/OT ordered due to gait instability, recommending SNF w/ rehab emphasis upon d/c. Discussed code status and pursuit of additional infectious work up with the patient, she elects to be DNR/DNI and this was witnessed by RN student, confirmed again with pt this afternoon and daughter Interventions as above, no BM since Thursday, add BID Colace and Bisacodyl suppository now Follow up labs in AM Admission and Anticipated Discharge Date Admission Date: November 26, 2021 Subjective Pt seen on rounds this morning. She voices no complaints/concerns. She is A&Ox3. Denies chest pain, dyspnea, n/v/d, f/c, headache, or gu symptoms. She was up to BR this AM and voided with assistance of RN. Able to eat breakfast. Remains afebrile. Last temp elevation noted around 1999 on 11/26 of 38.1C. Review of Systems Review of Systems: CONSTITUTIONAL: +fatigue/malaise, weakness. 5 lb unintentional weight loss over the past couple weeks. Denies weight loss/gain, fever and chills. HEENT: Denies changes in vision and hearing. RESPIRATORY: Denies SOB, cough, wheezing. CV: Denies palpitations, CP, lower extremity edema, orthopnea, PND. GI: Denies abdominal pain, n/v and diarrhea. : Denies dysuria and urinary frequency, urgency, hesitancy. MUSCULOSKELETAL: Denies myalgia and joint pain. SKIN: Denies rash and pruritus. NEUROLOGICAL: Denies headache, syncope, focal weakness, numbness, tingling. PSYCHIATRIC: Denies recent changes in mood. Denies anxiety and depression. Physical Exam Physical Exam: GENERAL: 86 yo well-developed, well-nourished WF. NAD. LUNGS: Clear to auscultation bilaterally. Diminished in the bases. No W/R/R. CARDIOVASCULAR: Regular rate and rhythm. No M/G/R. No JVD. ABDOMEN: Soft, non-tender and non-distended. BS normal x 4 quad. EXTREMITIES: No edema. Non-tender. Peripheral pulses +2/4. NEUROLOGIC: A&O x3. PSYCHIATRIC: Cooperative. Appropriate mood and affect. SKIN: Warm, dry, intact. No rashes or lesions. Results & Data Results & Data ([facility]) Vital Signs (Past 12 Hours) Vital Signs Temp Pulse Pulse Resp BP BP Pulse Ox 11/27/21 11:14 37.1 C 74 12 119/70 92 11/27/21 07:24 36.6 C 76 14 117/62 95 11/27/21 06:52 75 11/27/21 03:34 36.7 C 75 18 128/70 99 11/27/21 02:48 75 Laboratory Results 11/27/21 07:44 11/27/21 07:44 PG Care Time/CCT Total # of Minutes Spent Total Time Spent with Patient: Total time spent is greater than 50% in coordination of care (as documented) at patient's floor/unit and/or counseling patient: Coding Level of Care Code 55572 Subseq Hosp Care Lvl 3 Diagnoses Atelectasis J98.11 Atrial fibrillation I48.91 Parkinsons disease G20 Hypokalemia E87.6 Low grade fever R50.9 Thrombocytopenia D69.6
[2021-11-27] MEDS ORDERED: bisacodyL 10 MG SUPP PR STA (16:44)
[2021-11-27] MEDS: DOCUSATE SODIUM 100 MG CAP PO SCH (21:28)
[2021-11-27] MEDS: DOXYCYCLINE HYCLATE 100 MG CAP PO SCH (21:28)
[2021-11-28 06:10] LABS: Basophils # (auto) 0.05 K/uL (0-0.2); Basophils % (auto) 1.2 %; Eosinophils # (auto) 0.01 K/uL (0-0.5); Eosinophils % (auto) 0.2 %; Hematocrit (blood only) 37.7 % (37-47); Hemoglobin 12.7 g/dL (12.0-16.0); Immature Granulocytes # (auto) 0.02 K/uL (0.00-0.02); Immature Granulocytes % (auto) 0.5 %; Lymphocytes # (auto) 1.19 K/uL (1.2-3.4); Lymphocytes % (auto) 28.6 %; Mean Corpuscular Hemoglobin 29.9 pg (25-34); Mean Corpuscular Hgb Conc 33.7 g/dL (32-36); Mean Corpuscular Volume 88.7 fL (80-100); Mean Platelet Volume 10.9 fL (7.4-10.4); Monocytes # (auto) 0.36 K/uL (0.11-0.59); Monocytes % (auto) 8.7 %; Neutrophils # (auto) 2.53 K/uL (1.4-6.5); Neutrophils % (auto) 60.8 %; Platelet Count 119 K/uL (130-400); RDW Coefficient of Variation 14.6 % (11.5-14.5); RDW Standard Deviation 47.8 fL (36.4-46.3); Red Blood Count 4.25 M/uL (4.2-5.4); White Blood Count 4.16 K/uL (4.8-10.8)
[2021-11-28 06:37] LABS: Albumin Globulin Ratio 1.4 (0.9-2); Albumin Level 3.2 gm/dl (3.4-5.0); BUN Creatinine Ratio 15.4 (10-20); Bilirubin,Total 0.6 mg/dl (0.2-1.0); Calcium 8.4 mg/dl (8.5-10.1); Creatinine Clr Calc Pharmacy 51.3 ml/min; Est GFR (African American) 79.2 ml/min; Est GFR (Non-African American) 68.4 ml/min; Globulin 2.3 gm/dl (2.5-4.0); Potassium 3.6 mmol/L (3.5-5.1); Total Protein 5.5 gm/dl (6.0-8.3)
[2021-11-28] MEDS: DOXYCYCLINE HYCLATE 100 MG CAP PO SCH (07:40)
[2021-11-28] MEDS: RIVAROXABAN 20 MG TAB PO SCH (07:41)
[2021-11-28] MEDS: CARBIDOPA/LEVODOPA 25/100MG TAB PO SCH (07:41)
[2021-11-28] MEDS: PANTOprazole 40 MG TAB PO SCH (07:41)
[2021-11-28] MEDS: DOCUSATE SODIUM 100 MG CAP PO SCH (07:44)
[2021-11-28] MEDS ORDERED: RIVASTIGMINE TD SCH (09:00)
--- NOTE | 2021-11-28 11:38 | Discharge Summary ---
Date of Service November 28, 2021 Admission HPI Per Admitting Provider Maribel Smart is a pleasant 86yo female with history of AF, Parkinson's, Dementia, Sjogren's presenting with several weeks of not feeling well. She has been complaining of worsening fatigue as well as nausea and vomiting. She has been following with her PCP with these complaints. She had a CT of the abdomen performed on 11/14/21 which revealed moderate fecal retention as well as left basilar groundglass densities suggestive of atelectasis vs pneumonitis. She was started on antibiotics which she completed 3 days ago. She had a RUQ US performed on 11/19/21 which revealed small polyps, no gallstones and a 7mm hepatic lobe cyst. Patient presents with her daughter today with worsening symptoms. Her daughter visited her yesterday and patient was tired and less interactive. She also had nausea and vomiting. Today the patient was more tired. She was in bed and had not gotten out all day. Daughter found her to be less awake and responsive. She was mildly confused and speaking some nonsensical words. Daughter states that patient had difficulty with ambulating. This prompted her to bring her to the ER. Patient is sleeping during most of encounter but is arousable. She follows commands and answers questions appropriately. She is oriented to self and location, not to date. Daughter states that is not unusual for her. ER Course: Tylenol, Zofran, NSS x 1L, Cefepime 2gm, Azithromycin 500mg Principal Diagnosis 1. Atelectasis 2. Low grade fever--none since 11/26 3. Thrombocytopenia w/ uncertain etiology 4. Mild dehydration Discharge Exam GENERAL: 86 yo well-developed, well-nourished WF. NAD. LUNGS: Clear to auscultation bilaterally. Diminished in the bases. No W/R/R. CARDIOVASCULAR: Regular rate and rhythm. No M/G/R. No JVD. ABDOMEN: Soft, non-tender and non-distended. BS normal x 4 quad. EXTREMITIES: No edema. Non-tender. Peripheral pulses +2/4. NEUROLOGIC: A&O x3. PSYCHIATRIC: Cooperative. Appropriate mood and affect. SKIN: Warm, dry, intact. No rashes or lesions. Discharge Data Allergies Allergy/AdvReac Type Severity Reaction Status Date / Time No Known Allergies Allergy Verified 11/25/21 21:17 Consultations 11/26/21 00:52 ED Decision to Admit Stat Ordered Studies Chest X-Ray 11/25/21 21:43 XR chest 1V portable CLINICAL HISTORY: SEPSIS. Evaluate cardiopulmonary status COMPARISON STUDY: 10/28/2021 TECHNIQUE: 1 view of the chest FINDINGS: Single frontal view of the chest demonstrates the cardiomediastinal silhouette to be within normal limits. There is a decreased inspiratory effort with elevation of the hemidiaphragms and crowding of the bronchovascular markings at the lung bases and centrally. There is minimal left basilar atelectasis. The lungs are otherwise clear of alveolar opacities. There is no evidence for pleural effusion. There is no evidence for vascular congestion. There is no acute osseous pathology. IMPRESSION: Compared to the previous study, there is a decreased inspiratory effort with left basilar atelectasis. Otherwise no acute chest disease. ACT 112: Negative or not required by law. Electronically signed by: Nathan Acevedo M.D. 11/26/2021 7:[address] 11/25/21 22:[address] DOSE: 614.27 mGy.cm HISTORY: confusion TECHNIQUE: Multiaxial CT images of the head were performed without the use of intravenous contrast. Automated exposure control was utilized for this study. A dose lowering technique was utilized adhering to the principles of ALARA. Comparison: Head CT 06/20/2021. Findings: The paranasal sinuses and mastoid air cells are clear. The calvarium and skull base are intact. There is no mass, hematoma, midline shift, acute infarct. White matter hypodensity is nonspecific but suggestive of microvascular ischemic change. The ventricles and sulci demonstrate mild age-related involutional changes. Impression: No acute intracranial abnormality. Atrophy and microvascular ischemic changes. ACT 112: Negative or not required by law. Electronically signed by: Osman Galeana M.D. 11/26/2021 7:[address] 11/26/21 10:23 CT chest diagnostic wo con CT DOSE: 211.25 mGy.cm HISTORY: Abnormal chest x-ray. Sepsis. possible LLL pneumonia TECHNIQUE: Multiaxial CT images of the chest were performed without contrast. A dose lowering technique was utilized adhering to the principles of ALARA. COMPARISON: Chest 11/25/2021. Abdomen and pelvis CT 11/14/2021. FINDINGS: Mild biapical pleural-parenchymal scarlike densities are noted. The central airways are patent. No pleural effusions. No pneumothorax. Groundglass densities at the lung bases likely represent mild dependent change. There is a 1 cm calcified granuloma within the left lower lobe. Otherwise, no focal lung consolidations to suggest pneumonia. A 1 cm hypodense lesion within the liver favors a cyst. The visualized spleen and adrenal glands are unremarkable. Normal thyroid gland. No mediastinal or hilar lymphadenopathy. There are calcified AP window and left hilar lymph nodes. Dense mitral annulus calcifications. Mild c alcified plaque within the left coronary artery. Trace pericardial effusion. The heart is normal in size. Normal esophagus. Normal caliber thoracic aorta. No acute fractures within the visualized osseous structures. IMPRESSION: 1. Mild dependent changes seen at the lung bases. No focal lung consolidations to suggest pneumonia. 2. Trace pericardial fluid. 3. Evidence for prior granulomatous disease. ACT 112: Negative or not required by law. Electronically signed by: Osman Galeana M.D. 11/26/2021 12:10 PM Hospital Course (1) Low grade fever: -No true fevers, everything has been less than 100.4F -No source of infection found to date -Blood cultures ordered and are negative thus far for growth -U/A not convincing for UTI. Urine culture requested by daughter and is pending, but pt is asymptomatic, urine cx thus far no growth (d/w micro) -Leukopenia noted yesterday is improved today -Procalcitonin this morning 0.58, yesterday was 0.38 -Discussed option including LP both with patient and her daughter, they want to defer at this time (2) Thrombocytopenia: -Currently on Xarelto and has been for years -Dropped from 145 yesterday to 102 today -No active bleeding, no BM since admission -Rectal exam performed, hemoccult card sent to lab for analysis, which came back negative -Improved from 102 on 11/27 to 119 today -Peripheral smear ordered, tested for lyme which was negative, also tested for anaplasmosis which is pending -Empirically start Doxycycline 100mg BID x 14 days -Pending results of anaplasmosis, pcp can assist in determining whether Doxy needs to be continued or stopped (3) Atelectasis: -CXR on 11/25 LLL atelectasis, CT w/o contrast chest on 11/26 demonstrating evidence of atelectasis, no pneumonia -BioFire obtained was negative -Incentive spirometry has been ordered q2h -She recently completed a course of abx as outpatient for suspected PNA, no gross evidence of infection just has very low grade fevers -D/C'd Zithromax and Rocephin that was started upon admission (4) Atrial fibrillation: Rate controlled -Continue Xarelto (5) Parkinsons disease: Chronic. Stable on medications -Continue Rivastigmine -Continue Carbidopa/Levodopa (6) Hypokalemia: -Replaced/resolved At this time, pt is medically and hemodynamically stable for discharge home. No specific identified source of infection. Anaplasmosis test is pending. Urine culture (final results) are pending, but no growth to date. Empiric Doxy as outlined above. Return to [facility] but in SNF for acute rehab, may be able to eventually return to independent living eventually. Would advise close follow up with her family doctor at [facility] within 1 week of discharge. Total Time Total Time Spent Total Time Spent (In Minutes): >30 minutes Discharge Plan Discharge Items Patient Disposition: Transfer Group Home Fac Reason For Visit: WEAKNESS, FATIGUE Discharge Diagnosis: Generalized weakness/fatigue Low grade temperature -- likely due to atelectasis Condition on Discharge: Good Activity: As commented below Activity Comment: As tolerated Non-emergency contact: Primary Care Provider Call non-emergency contact if: you have any medication questions and your symptoms worsen Follow-up/Referrals: Itzel Qureshi [Primary Care Provider] - Diet: Regular Addtl Attending Provider Instructions: You were hospitalized due generalized weakness. Initially there was some concern for a possible pneumonia. However, upon further testing, it was determined that you do not have pneumonia and actually have what is called atelectasis. This occurs when some of the alveoli that is where the gas exchange occurs (exchanging oxygen for carbon dioxide) collapse. The appearance on chest xray can sometimes look like pneumonia. It is recommended that you continue to use the incentive spirometer that we gave you to help with exercising your lungs to reduce further atelectasis which CAN develop into pneumonia. You did have a little drop in your platelets. But this could be due to an unknown viral syndrome. You were tested in the hospital with our extensive viral respiratory panel which was all negative. But this does not test for all possible viruses. Regardless, there was no evidence of internal bleeding and today your platelets are returning to normal. There is always the possibility that given the location in which we reside, that you could've been had a tick bite that you were not aware of. For this reason, we did test you for Lyme disease which was negative; however, we also tested you for another tick borne illness called anaplasmosis. This test is still pending currently. But in the meantime, we have started you on an antibiotic called Doxycycline which is used to treat this illness. Once the test comes back, you and your family doctor can decide whether ongoing treatment is necessary or if you can stop the antibiotic. Your urine was also tested during your hospitalization and sent to the lab to determine if there was bacterial growth. There is no growth noted at this time. Final results are pending but should be available to be reviewed by your family doctor as early as tomorrow (11/29). Therapy worked with you here in the hospital and recommended rehabilitation upon discharge. We would recommend that you return to [facility] for acute rehab to gain strength with hopes of eventually returning to independent living. In the interim, we advise follow up within 1 week of discharge from the hospital with your family doctor at [facility]. Pending Studies at Discharge: Yes Studies:: Anaplasmosis test Urine culture Stand-Alone Forms: My [facility] Skilled Items Patient informed of condition?: No DNR: Yes Discharge Level of Care: Acute rehab Communicable Disease: No Discharge Prognosis: Stable Lines: None Urinary Catheter: No Medications and DC Order Prescriptions: New doxycycline hyclate 100 mg Capsule 100 mg PO BID Qty: 28 RF: 0 Continued carbidopa-levodopa 25-100 mg tablet 1 tab PO DAILY RF: 0 rivastigmine 9.5 mg/24 hour patch 24 hour 9.5 mg transdermal DAILY RF: 0 Xarelto 20 mg tablet 20 mg PO DAILY RF: 0 pantoprazole 40 mg tablet,delayed release (DR/EC) 40 mg PO DAILY RF: 0 polyethylene glycol 3350 [Miralax] 17 gram/dose Powder 17 g PO DAILY PRN (Reason: Constipation) RF: 0 ondansetron 4 mg tablet,disintegrating 4 mg PO TID PRN (Reason: Nausea) RF: 0 Discharge Orders: Discharge Order (Routine); Ordered 11/28/21 Ordered By: Melanie Rodriguez Admission Data Admit Date/Time: 11/26/21 02:10 Attending Provider: Juan F Morales Admit Provider: Michaela Saldana Primary Care Provider: Itzel Qureshi Other Providers: Michaela Saldana Coding Level of Care Code D/C DAY MANAGEMENT >30 MINS Diagnoses Low grade fever R50.9 Thrombocytopenia D69.6 Atelectasis J98.11 Atrial fibrillation I48.91 Parkinsons disease G20 Hypokalemia E87.6
== END 2021-11-28 15:21 ==
LOC: ED 20:35 → INTOOBSV 11-26 02:10 → SUATTDRO 11-26 02:10 → EDINP 11-26 02:10 → 2N 11-26 04:52